=== PATIENT | female | born 1930 | race Caucasian/White ===

== ENCOUNTER 2017-11-09 19:03 | Inpatient (IN) | payer MEDICARE, BC ==
[~2017-11-09] VITALS: Ht 160 cm; Wt 59.2 kg
[~2017-11-09 19:03] MED LIST: ACET1TAB14 PO; AMLO10TA PO; CARI350T PO; CLON-529 PO; LACT-28 PO; LACT1CAP26 PO; LISI10TA4 PO; OCUVITE PO; OMEP40CA37 PO; TIZA4CAP PO
[2017-11-09 20:15] LABS: CLARITY,URINE SLIGHTLY CLOUDY (Clear); COLOR,URINE YELLOW (Yellow); GLUCOSE, URINE NEGATIVE (Neg); KETONES,URINE TRACE mg/dl (Neg); LEUKOCYTE ESTERASE ,URINE SMALL (Neg); NITRITES, URINE NEGATIVE (Neg); OCCULT BLOOD,URINE NEGATIVE (Neg); PROTEIN,URINE 30 mg/dl (Neg); UROBILINOGEN,URINE 0.2 E.U/dL (0.2-1.0)
[2017-11-09 20:20] LABS: BASOPHILS % (AUTO) 0.2 % (0-1); EOSINOPHILS # (AUTO) 0.3 X10'3 (0-0.9); EOSINOPHILS % (AUTO) 1.4 % (0-6); HEMATOCRIT 36.7 % (35.0-45.0); HEMOGLOBIN 12.4 g/dl (12.0-16.0); LYMPHOCYTES # (AUTO) 0.9 X10'3 (1.1-4.8); LYMPHOCYTES % (AUTO) 4.3 % (21-51); MEAN CORPUSCULAR HEMOGLOBIN 31.8 PG (27.0-31.0); MEAN CORPUSCULAR VOLUME 93.6 FL (78-98); MEAN PLATELET VOLUME 8.2 FL (7.4-10.4); MONOCYTES # (AUTO) 0.8 X10'3 (0-0.9); MONOCYTES % (AUTO) 3.8 % (2-12); NEUTROPHILS # (AUTO) 18.9 X10'3 (1.8-7.7); NEUTROPHILS % (AUTO) 90.3 % (42-75); PLATELET COUNT 343 X10'3 (140-440); RED BLOOD COUNT 3.92 X10'6 (4.20-5.60); RED CELL DISTRIBUTION WIDTH 14.6 % (11.5-14.5); WHITE BLOOD COUNT 20.9 X10'3 (4.5-11.0)
[2017-11-09 20:31] LABS: PROTHROMBIN TIME 9.9 SECONDS (9.0-12.0)
[2017-11-09 20:38] LABS: ALANINE AMINOTRANSFERASE 21 U/L (12-78); ALBUMIN 3.5 G/DL (3.4-5.0); ALBUMIN/GLOBULIN RATIO 0.9 (1.1-1.5); ALKALINE PHOSPHATASE 85 IU/L (46-116); ANION GAP 6 (8-16); ASPARTATE AMINO TRANSFERASE 17 U/L (10-37); BILIRUBIN,TOTAL 0.5 MG/DL (0.1-1.0); BLOOD UREA NITROGEN 22 MG/DL (7-18); BUN/CREATININE RATIO 15.7 (6.6-38.0); CALCIUM 8.9 MG/DL (8.5-10.1); CHLORIDE 99 MMOL/L (99-107); GLUCOSE 146 MG/DL (70-104); POTASSIUM 4.2 MMOL/L (3.5-5.1); SODIUM 135 MMOL/L (135-145); TOTAL CARBON DIOXIDE 29.8 MMOL/L (24-32); TOTAL PROTEIN 7.4 G/DL (6.4-8.2); eGFR 36 ML/MIN
[2017-11-09 20:52] LABS: UA COLLECTION TYPE CLN CATCH MIDSTREAM
[2017-11-09 21:00] LABS: BACTERIA,URINE FEW /HPF (Neg); MUCUS STRANDS FEW /LPF (Neg); RBC,URINE NONE SEEN /HPF (0-2); SQUAMOUS EPITHELIAL CELL,UR FEW /LPF (FEW); WBC,URINE 20-30 /HPF (0-4)
[2017-11-09 21:01] LABS: WBC CLUMPS,URINE FEW /HPF (NEGATIVE)
[2017-11-09] MEDS ORDERED: morphine 2 MG/ML inj. syringe IV ONE (22:40)
[2017-11-09] MEDS ORDERED: ondansetron/PF 4mg/2ml inj IV ONE (22:40)
[2017-11-09] MEDS ORDERED: metroNIDAZOLE 500mg tablet PO ONE (23:05)
[2017-11-09] MEDS ORDERED: ciprofloxacin lact 400MG/200ML 200 ML IV SCH (23:22)
[2017-11-10] MEDS ORDERED: cefTRIAXone 1g/NS 100ml IVPB 100 ML IV SCH ×3 (00:25→00:56)
[2017-11-10] MEDS ORDERED: magnesium hydroxide 30ml (MOM) UD suspension PO PRN (00:35)
[2017-11-10] MEDS ORDERED: ondansetron/PF 4mg/2ml inj IV PRN (00:35)
[2017-11-10] MEDS ORDERED: HYDROmorphone 1 mg/ml syringe IV PRN ×2 (00:35)
[2017-11-10] MEDS ORDERED: HYDROcodone/acetaminophen 5mg/325mg tablet PO PRN (00:35)
[2017-11-10] MEDS ORDERED: morphine 2 MG/ML inj. syringe IV PRN ×2 (00:35)
[2017-11-10] MEDS ORDERED: acetaminophen 325mg tablet PO PRN ×2 (00:35)
[2017-11-10] MEDS ORDERED: bisacodyl 10mg suppository rectal RC PRN (00:35)
[2017-11-10] MEDS ORDERED: diphenhydrAMINE 25mg capsule PO PRN (00:35)
[2017-11-10] MEDS ORDERED: mag hydrox/Alum hydrox/simeth 30ml oral suspension PO PRN (00:35)
[2017-11-10] MEDS ORDERED: HYDROcodone/acetaminophen 10/325mg tab PO PRN (00:35)
[2017-11-10] MEDS ORDERED: diphenhydrAMINE 50 mg/ml inj IV PRN (00:35)
[2017-11-10] MEDS ORDERED: acetaminophen 650mg rectal suppository RC PRN (00:35)
[2017-11-10] MEDS ORDERED: cyclobenzaprine 10mg tablet PO PRN (00:45)
[2017-11-10] MEDS ORDERED: CefTRIAXone/D5W-Rocephin 1gm 50 ML IV ONE (01:06)
[2017-11-10] MEDS: normal saline 1000ml 1,000 ML IV SCH ×3 (01:10→20:34)
[2017-11-10 01:16] LABS: HEMOGLOBIN A1C 6.1 % (4.5-6.2)
[2017-11-10 01:20] LABS: LIPASE < 50 U/L (73-393); MAGNESIUM 1.8 MG/DL (1.5-2.4); PHOSPHORUS 2.6 MG/DL (2.3-4.5)
[2017-11-10] MEDS ORDERED: HYDROmorphone 2mg/ml vial IV STA (03:18)
[2017-11-10] MEDS ORDERED: lactobacillus rhamnosus 10,000 MMU CELLS/CAPSULE PO SCH (07:30)
[2017-11-10 08:00] VITALS: BP 160/71
[2017-11-10] MEDS: docusate sod 100mg capsule PO SCH ×2 (08:00→20:00)
[2017-11-10] MEDS ORDERED: morphine 8mg/ml inj. syringe IV PRN ×2 (10:29)
[2017-11-10] MEDS ORDERED: HYDROmorphone 2mg/ml vial IV PRN (10:30)
[2017-11-10] MEDS: lactobacillus rhamnosus 10,000 MMU CELLS/CAPSULE PO SCH ×2 (10:44→17:47)
[2017-11-10] MEDS: cyclobenzaprine 10mg tablet PO SCH ×3 (10:45→20:17)
[2017-11-10] MEDS: amLODIPine 5mg tablet PO SCH (10:45)
[2017-11-10] MEDS: CefTRIAXone/D5W-Rocephin 1gm 50 ML IV SCH ×2 (10:46→20:18)
[2017-11-10] MEDS: HYDROmorphone 2mg/ml vial IV PRN ×4 (10:47→23:58)
[2017-11-10] MEDS: heparin, porcine 5000 units/ml vial SQ SCH ×2 (10:48→20:18)
[2017-11-10] MEDS: pantoprazole 40 MG vial IV SCH (10:48)
[2017-11-10 11:00] VITALS: BP 139/68
[2017-11-10] MEDS ORDERED: ERGO400C (14:57)
[2017-11-10 15:01] LABS: OCCULT BLOOD STOOL NEGATIVE (Neg)
[2017-11-10 15:47] LABS: C DIFF ANTIGEN POSITIVE (NEGATIVE); C DIFF SPECIMEN=DIARRHEA? ACCEPTABLE; C DIFFICILE TOXINS A&B POSITIVE (Neg)
[2017-11-10] MEDS ORDERED: morphine 5 MG/ML injection IV PRN (17:07)
[2017-11-10 20:00] VITALS: BP 143/74
[2017-11-10] MEDS ORDERED: temazepam 15mg capsule PO PRN (21:00)
[2017-11-11] VITALS: BP 162/81
[2017-11-11] MEDS: vancomycin 125mg/5ml ORAL solution 5ml UD bottle PO SCH ×4 (02:10→19:26)
[2017-11-11] MEDS: normal saline 1000ml 1,000 ML IV SCH ×2 (02:12→12:07)
[2017-11-11] MEDS: HYDROmorphone 2mg/ml vial IV PRN ×5 (04:40→23:46)
[2017-11-11 05:26] LABS: BASOPHILS # (AUTO) 0.1 X10'3 (0-0.2); BASOPHILS % (AUTO) 0.7 % (0-1); EOSINOPHILS # (AUTO) 0.3 X10'3 (0-0.9); EOSINOPHILS % (AUTO) 3.1 % (0-6); HEMATOCRIT 32.8 % (35.0-45.0); HEMOGLOBIN 11.2 g/dl (12.0-16.0); LYMPHOCYTES # (AUTO) 0.9 X10'3 (1.1-4.8); LYMPHOCYTES % (AUTO) 10.1 % (21-51); MEAN CORPUSCULAR HGB CONC 34.1 % (33.0-36.5); MEAN CORPUSCULAR VOLUME 94.1 FL (78-98); MEAN PLATELET VOLUME 8.7 FL (7.4-10.4); MONOCYTES # (AUTO) 0.8 X10'3 (0-0.9); MONOCYTES % (AUTO) 8.9 % (2-12); NEUTROPHILS # (AUTO) 6.9 X10'3 (1.8-7.7); NEUTROPHILS % (AUTO) 77.2 % (42-75); PLATELET COUNT 260 X10'3 (140-440); RED BLOOD COUNT 3.48 X10'6 (4.20-5.60); RED CELL DISTRIBUTION WIDTH 14.3 % (11.5-14.5); WHITE BLOOD COUNT 8.9 X10'3 (4.5-11.0)
[2017-11-11 06:06] LABS: ALANINE AMINOTRANSFERASE 10 U/L (12-78); ALBUMIN 2.7 G/DL (3.4-5.0); ALBUMIN/GLOBULIN RATIO 0.7 (1.1-1.5); ALKALINE PHOSPHATASE 68 IU/L (46-116); ANION GAP 9 (8-16); ASPARTATE AMINO TRANSFERASE 17 U/L (10-37); BILIRUBIN,TOTAL 0.3 MG/DL (0.1-1.0); BLOOD UREA NITROGEN 9 MG/DL (7-18); CALCIUM 8.3 MG/DL (8.5-10.1); CHLORIDE 104 MMOL/L (99-107); CHOL/HDL RATIO 3.2 (0.00-4.99); CHOLESTEROL 174 MG/DL (0-200); GLUCOSE 100 MG/DL (70-104); HDL CHOLESTEROL 55 MG/DL (35-60); LDL CHOLESTEROL 101 MG/DL (50-100); POTASSIUM 3.4 MMOL/L (3.5-5.1); SODIUM 139 MMOL/L (135-145); TOTAL CARBON DIOXIDE 25.9 MMOL/L (24-32); TOTAL PROTEIN 6.4 G/DL (6.4-8.2); TRIGLYCERIDES 127 MG/DL (20-135); eGFR 53 ML/MIN
[2017-11-11 07:00] VITALS: BP 161/83
[2017-11-11] MEDS: docusate sod 100mg capsule PO SCH ×2 (08:00→20:00)
[2017-11-11] MEDS ORDERED: pneumococcal 23-VAL P-sac vacc 25 mcg/0.5ml vial IMVAC ONE (10:00)
[2017-11-11] MEDS: lactobacillus rhamnosus 10,000 MMU CELLS/CAPSULE PO SCH ×2 (10:10→17:55)
[2017-11-11] MEDS: amLODIPine 5mg tablet PO SCH (10:11)
[2017-11-11] MEDS: cyclobenzaprine 10mg tablet PO SCH ×3 (10:11→19:27)
[2017-11-11] MEDS: heparin, porcine 5000 units/ml vial SQ SCH ×2 (10:14→19:27)
[2017-11-11] MEDS: pantoprazole 40 MG vial IV SCH (10:20)
[2017-11-11 11:00] VITALS: BP 134/62
[2017-11-11] MEDS ORDERED: magnesium 4gm in 100ml NS 100 ML IV PRN (11:50)
[2017-11-11] MEDS ORDERED: potassium Cl 20 mEq SR tablet PO PRN (11:50)
[2017-11-11] MEDS ORDERED: magnesium Cl slow-release 64mg tablet PO PRN (11:50)
[2017-11-11] MEDS ORDERED: potassium Cl 40MEQ/NS 500ml 500 ML IV PRN ×2 (11:50)
[2017-11-11] MEDS ORDERED: magnesium 2GM in 50ml NS 50 ML IV PRN (11:50)
[2017-11-11] MEDS: potassium Cl 20 mEq SR tablet PO PRN ×2 (12:06→16:18)
[2017-11-11 20:00] VITALS: BP 149/82
[2017-11-12] VITALS: BP 150/80
[2017-11-12] MEDS: vancomycin 125mg/5ml ORAL solution 5ml UD bottle PO SCH ×4 (01:52→20:00)
[2017-11-12] MEDS: HYDROmorphone 2mg/ml vial IV PRN ×4 (03:22→16:37)
[2017-11-12 05:50] LABS: BASOPHILS % (AUTO) 0.9 % (0-1); EOSINOPHILS # (AUTO) 0.2 X10'3 (0-0.9); EOSINOPHILS % (AUTO) 3.4 % (0-6); HEMATOCRIT 32.6 % (35.0-45.0); HEMOGLOBIN 10.8 g/dl (12.0-16.0); LYMPHOCYTES # (AUTO) 0.9 X10'3 (1.1-4.8); LYMPHOCYTES % (AUTO) 17.7 % (21-51); MEAN CORPUSCULAR HEMOGLOBIN 31.1 PG (27.0-31.0); MEAN CORPUSCULAR VOLUME 94.1 FL (78-98); MEAN PLATELET VOLUME 8.6 FL (7.4-10.4); MONOCYTES # (AUTO) 0.6 X10'3 (0-0.9); MONOCYTES % (AUTO) 12.1 % (2-12); NEUTROPHILS # (AUTO) 3.5 X10'3 (1.8-7.7); NEUTROPHILS % (AUTO) 65.9 % (42-75); PLATELET COUNT 252 X10'3 (140-440); RED BLOOD COUNT 3.46 X10'6 (4.20-5.60); RED CELL DISTRIBUTION WIDTH 13.8 % (11.5-14.5); WHITE BLOOD COUNT 5.3 X10'3 (4.5-11.0)
[2017-11-12 06:15] LABS: ALANINE AMINOTRANSFERASE 16 U/L (12-78); ALBUMIN 2.6 G/DL (3.4-5.0); ALBUMIN/GLOBULIN RATIO 0.7 (1.1-1.5); ALKALINE PHOSPHATASE 62 IU/L (46-116); ASPARTATE AMINO TRANSFERASE 17 U/L (10-37); BILIRUBIN,TOTAL 0.2 MG/DL (0.1-1.0); BLOOD UREA NITROGEN 6 MG/DL (7-18); BUN/CREATININE RATIO 6.7 (6.6-38.0); GLUCOSE 91 MG/DL (70-104); MAGNESIUM 1.8 MG/DL (1.5-2.4); TOTAL CARBON DIOXIDE 26.1 MMOL/L (24-32); TOTAL PROTEIN 6.1 G/DL (6.4-8.2); eGFR 60 ML/MIN
[2017-11-12 06:47] LABS: ANION GAP 7 (8-16); CHLORIDE 106 MMOL/L (99-107); POTASSIUM 3.6 MMOL/L (3.5-5.1); SODIUM 139 MMOL/L (135-145)
[2017-11-12 07:19] VITALS: BP 128/67
[2017-11-12] MEDS: normal saline 1000ml 1,000 ML IV SCH ×2 (07:52→14:06)
[2017-11-12] MEDS: amLODIPine 5mg tablet PO SCH (07:53)
[2017-11-12] MEDS: cyclobenzaprine 10mg tablet PO SCH ×3 (07:53→22:29)
[2017-11-12] MEDS: lactobacillus rhamnosus 10,000 MMU CELLS/CAPSULE PO SCH ×2 (07:53→16:39)
[2017-11-12] MEDS: pantoprazole 40 MG vial IV SCH (07:55)
[2017-11-12] MEDS: heparin, porcine 5000 units/ml vial SQ SCH ×2 (07:59→22:19)
[2017-11-12] MEDS: docusate sod 100mg capsule PO SCH ×2 (07:59→20:00)
[2017-11-12 11:00] VITALS: BP 139/61
[2017-11-12 20:00] VITALS: BP 137/84
[2017-11-12] MEDS: morphine 5 MG/ML injection IV PRN (22:23)
[2017-11-12] MEDS ORDERED: HYDROmorphone 2mg tablet PO PRN (23:55)
[2017-11-13] VITALS: BP 160/88
[2017-11-13] MEDS: vancomycin 125mg/5ml ORAL solution 5ml UD bottle PO SCH ×4 (02:11→20:07)
[2017-11-13] MEDS: HYDROmorphone 2mg tablet PO PRN (05:44)
[2017-11-13 05:57] LABS: BASOPHILS % (AUTO) 0.9 % (0-1); EOSINOPHILS # (AUTO) 0.2 X10'3 (0-0.9); EOSINOPHILS % (AUTO) 3.6 % (0-6); HEMATOCRIT 37.8 % (35.0-45.0); HEMOGLOBIN 12.7 g/dl (12.0-16.0); LYMPHOCYTES # (AUTO) 1.1 X10'3 (1.1-4.8); LYMPHOCYTES % (AUTO) 24.9 % (21-51); MEAN CORPUSCULAR HEMOGLOBIN 31.5 PG (27.0-31.0); MEAN CORPUSCULAR HGB CONC 33.6 % (33.0-36.5); MEAN CORPUSCULAR VOLUME 93.7 FL (78-98); MEAN PLATELET VOLUME 8.7 FL (7.4-10.4); MONOCYTES # (AUTO) 0.5 X10'3 (0-0.9); MONOCYTES % (AUTO) 11.9 % (2-12); NEUTROPHILS # (AUTO) 2.6 X10'3 (1.8-7.7); NEUTROPHILS % (AUTO) 58.7 % (42-75); PLATELET COUNT 277 X10'3 (140-440); RED BLOOD COUNT 4.03 X10'6 (4.20-5.60); RED CELL DISTRIBUTION WIDTH 14.1 % (11.5-14.5); WHITE BLOOD COUNT 4.5 X10'3 (4.5-11.0)
[2017-11-13 06:58] LABS: ALANINE AMINOTRANSFERASE 13 U/L (12-78); ALBUMIN/GLOBULIN RATIO 0.7 (1.1-1.5); ALKALINE PHOSPHATASE 72 IU/L (46-116); ANION GAP 8 (8-16); ASPARTATE AMINO TRANSFERASE 23 U/L (10-37); BILIRUBIN,TOTAL 0.3 MG/DL (0.1-1.0); BLOOD UREA NITROGEN 8 MG/DL (7-18); CALCIUM 8.7 MG/DL (8.5-10.1); CHLORIDE 105 MMOL/L (99-107); GLUCOSE 103 MG/DL (70-104); MAGNESIUM 1.8 MG/DL (1.5-2.4); POTASSIUM 3.8 MMOL/L (3.5-5.1); SODIUM 139 MMOL/L (135-145); TOTAL CARBON DIOXIDE 25.6 MMOL/L (24-32); TOTAL PROTEIN 7.1 G/DL (6.4-8.2); eGFR 53 ML/MIN
[2017-11-13] MEDS: docusate sod 100mg capsule PO SCH ×2 (08:00→20:00)
[2017-11-13 08:49] VITALS: BP 149/79
[2017-11-13] MEDS: cyclobenzaprine 10mg tablet PO SCH ×3 (09:25→20:08)
[2017-11-13] MEDS: amLODIPine 5mg tablet PO SCH (09:25)
[2017-11-13] MEDS: lactobacillus rhamnosus 10,000 MMU CELLS/CAPSULE PO SCH ×2 (09:26→16:55)
[2017-11-13] MEDS: morphine 5 MG/ML injection IV PRN ×5 (09:27→21:40)
[2017-11-13] MEDS: heparin, porcine 5000 units/ml vial SQ SCH ×2 (09:28→20:08)
[2017-11-13] MEDS: pantoprazole 40mg Tablet.DR PO SCH (09:41)
[2017-11-13 11:27] VITALS: BP 151/75
[2017-11-13] MEDS ORDERED: morphine 5 MG/ML injection IV PRN (12:25)
[2017-11-13] MEDS: normal saline 1000ml 1,000 ML IV SCH (12:42)
[2017-11-13 20:00] VITALS: BP 150/68
[2017-11-14] VITALS: BP 161/60
[2017-11-14] MEDS: morphine 5 MG/ML injection IV PRN ×4 (00:45→11:31)
[2017-11-14] MEDS: vancomycin 125mg/5ml ORAL solution 5ml UD bottle PO SCH ×4 (02:28→19:44)
[2017-11-14 05:56] LABS: BASOPHILS % (AUTO) 0.9 % (0-1); EOSINOPHILS # (AUTO) 0.2 X10'3 (0-0.9); HEMATOCRIT 35.4 % (35.0-45.0); LYMPHOCYTES % (AUTO) 24.7 % (21-51); MEAN CORPUSCULAR HEMOGLOBIN 31.1 PG (27.0-31.0); MEAN CORPUSCULAR HGB CONC 33.9 % (33.0-36.5); MEAN CORPUSCULAR VOLUME 91.9 FL (78-98); MONOCYTES # (AUTO) 0.6 X10'3 (0-0.9); MONOCYTES % (AUTO) 15.9 % (2-12); NEUTROPHILS # (AUTO) 2.1 X10'3 (1.8-7.7); NEUTROPHILS % (AUTO) 53.5 % (42-75); PLATELET COUNT 243 X10'3 (140-440); RED BLOOD COUNT 3.85 X10'6 (4.20-5.60); RED CELL DISTRIBUTION WIDTH 13.9 % (11.5-14.5); WHITE BLOOD COUNT 3.9 X10'3 (4.5-11.0)
[2017-11-14 06:19] LABS: ALANINE AMINOTRANSFERASE 24 U/L (12-78); ALBUMIN 2.9 G/DL (3.4-5.0); ALBUMIN/GLOBULIN RATIO 0.8 (1.1-1.5); ALKALINE PHOSPHATASE 61 IU/L (46-116); ANION GAP 11 (8-16); ASPARTATE AMINO TRANSFERASE 32 U/L (10-37); BILIRUBIN,TOTAL 0.3 MG/DL (0.1-1.0); BLOOD UREA NITROGEN 7 MG/DL (7-18); CALCIUM 8.2 MG/DL (8.5-10.1); CHLORIDE 106 MMOL/L (99-107); GLUCOSE 96 MG/DL (70-104); MAGNESIUM 1.6 MG/DL (1.5-2.4); POTASSIUM 3.3 MMOL/L (3.5-5.1); SODIUM 141 MMOL/L (135-145); TOTAL CARBON DIOXIDE 24.4 MMOL/L (24-32); TOTAL PROTEIN 6.5 G/DL (6.4-8.2); eGFR 53 ML/MIN
[2017-11-14 07:00] VITALS: BP 146/82
[2017-11-14] MEDS: cyclobenzaprine 10mg tablet PO SCH ×3 (08:10→19:45)
[2017-11-14] MEDS: heparin, porcine 5000 units/ml vial SQ SCH ×2 (08:10→19:45)
[2017-11-14] MEDS: docusate sod 100mg capsule PO SCH ×2 (08:10→19:51)
[2017-11-14] MEDS: amLODIPine 5mg tablet PO SCH (08:10)
[2017-11-14] MEDS: lactobacillus rhamnosus 10,000 MMU CELLS/CAPSULE PO SCH ×2 (08:10→17:42)
[2017-11-14] MEDS: pantoprazole 40mg Tablet.DR PO SCH (08:10)
[2017-11-14] MEDS: normal saline 1000ml 1,000 ML IV SCH ×2 (08:10→22:51)
[2017-11-14 11:00] VITALS: BP 126/68
[2017-11-14] MEDS ORDERED: magnesium 4gm in 100ml NS 100 ML IV PRN (12:40)
[2017-11-14] MEDS ORDERED: magnesium 2GM in 50ml NS 50 ML IV PRN (12:40)
[2017-11-14] MEDS ORDERED: magnesium Cl slow-release 64mg tablet PO PRN (12:40)
[2017-11-14] MEDS ORDERED: potassium Cl 20 mEq SR tablet PO PRN (12:40)
[2017-11-14] MEDS ORDERED: potassium Cl 40MEQ/NS 500ml 500 ML IV PRN ×2 (12:40)
[2017-11-14] MEDS: potassium Cl 20 mEq SR tablet PO PRN ×2 (13:33→19:45)
[2017-11-14] MEDS ORDERED: morphine 2 MG/ML inj. syringe IV PRN (14:29)
[2017-11-14] MEDS: morphine 2 MG/ML inj. syringe IV PRN ×2 (14:45→19:57)
[2017-11-14] MEDS: HYDROmorphone 2mg tablet PO PRN ×2 (15:49→22:48)
[2017-11-14 20:00] VITALS: BP 141/86
[2017-11-15] VITALS: BP 138/66
[2017-11-15] MEDS: vancomycin 125mg/5ml ORAL solution 5ml UD bottle PO SCH ×3 (02:03→13:28)
[2017-11-15] MEDS: morphine 2 MG/ML inj. syringe IV PRN (02:03)
[2017-11-15] MEDS: HYDROmorphone 2mg tablet PO PRN ×3 (05:20→14:56)
[2017-11-15 05:33] LABS: BASOPHILS % (AUTO) 1.1 % (0-1); EOSINOPHILS # (AUTO) 0.3 X10'3 (0-0.9); EOSINOPHILS % (AUTO) 7.4 % (0-6); HEMATOCRIT 35.1 % (35.0-45.0); HEMOGLOBIN 11.8 g/dl (12.0-16.0); LYMPHOCYTES # (AUTO) 1.2 X10'3 (1.1-4.8); LYMPHOCYTES % (AUTO) 33.2 % (21-51); MEAN CORPUSCULAR HEMOGLOBIN 31.1 PG (27.0-31.0); MEAN CORPUSCULAR HGB CONC 33.5 % (33.0-36.5); MEAN PLATELET VOLUME 8.4 FL (7.4-10.4); MONOCYTES # (AUTO) 0.6 X10'3 (0-0.9); MONOCYTES % (AUTO) 17.2 % (2-12); NEUTROPHILS # (AUTO) 1.4 X10'3 (1.8-7.7); NEUTROPHILS % (AUTO) 41.1 % (42-75); PLATELET COUNT 227 X10'3 (140-440); RED BLOOD COUNT 3.78 X10'6 (4.20-5.60); RED CELL DISTRIBUTION WIDTH 14.1 % (11.5-14.5); WHITE BLOOD COUNT 3.5 X10'3 (4.5-11.0)
[2017-11-15 06:08] LABS: ALANINE AMINOTRANSFERASE 26 U/L (12-78); ALBUMIN 2.8 G/DL (3.4-5.0); ALBUMIN/GLOBULIN RATIO 0.8 (1.1-1.5); ALKALINE PHOSPHATASE 59 IU/L (46-116); ANION GAP 9 (8-16); ASPARTATE AMINO TRANSFERASE 31 U/L (10-37); BILIRUBIN,TOTAL 0.3 MG/DL (0.1-1.0); BLOOD UREA NITROGEN 10 MG/DL (7-18); CALCIUM 8.4 MG/DL (8.5-10.1); CHLORIDE 107 MMOL/L (99-107); GLUCOSE 92 MG/DL (70-104); MAGNESIUM 1.6 MG/DL (1.5-2.4); POTASSIUM 3.7 MMOL/L (3.5-5.1); SODIUM 140 MMOL/L (135-145); TOTAL CARBON DIOXIDE 24.1 MMOL/L (24-32); TOTAL PROTEIN 6.3 G/DL (6.4-8.2); eGFR 53 ML/MIN
[2017-11-15 07:00] VITALS: BP 158/79
[2017-11-15] MEDS: lactobacillus rhamnosus 10,000 MMU CELLS/CAPSULE PO SCH (07:56)
[2017-11-15] MEDS: pantoprazole 40mg Tablet.DR PO SCH (07:56)
[2017-11-15] MEDS: cyclobenzaprine 10mg tablet PO SCH ×2 (07:56→13:28)
[2017-11-15] MEDS: amLODIPine 5mg tablet PO SCH (07:56)
[2017-11-15] MEDS: docusate sod 100mg capsule PO SCH (07:56)
[2017-11-15] MEDS: heparin, porcine 5000 units/ml vial SQ SCH (07:57)
[2017-11-15 11:00] VITALS: BP 147/66
== END 2017-11-15 18:10 | disposition home or self-care (01) | DRG 871 ==
LOC: ER 19:03 → ED HOLD 11-10 00:34 → EDBEDREQ 11-10 04:24 → SUR 3N 11-10 07:15
PROVIDERS: ADMIT Family Medicine; ATTEND Internal Medicine
DX: A41.9 Sepsis, unspecified organism (principal); N17.0 Acute kidney failure with tubular necrosis; E43 Unspecified severe protein-calorie malnutrition; A04.72 Enterocolitis due to Clostridium difficile, not specified as recurrent; N39.0 Urinary tract infection, site not specified; I10 Essential (primary) hypertension; E87.6 Hypokalemia; Z90.5 Acquired absence of kidney; Z88.1 Allergy status to other antibiotic agents; Z88.2 Allergy status to sulfonamides; Z79.899 Other long term (current) drug therapy; Z82.49 Family history of ischemic heart disease and other diseases of the circulatory system; Z80.1 Family history of malignant neoplasm of trachea, bronchus and lung; Z68.23 Body mass index [BMI] 23.0-23.9, adult
CPT/HCPCS: 36415; 74176; 76775; 80053; 80061; 81001; 82272; 83036; 83605; 83690; 83735; 83880; 84100; 84145; 84443; 84484; 85025; 85610; 87040; 87045; 87046; 87070; 87088; 87324; 87449; 89055; 90732; 96374; 96375; 99285; A6258; C9113; J0696; J0744; J1170; J1200; J1644; J2270; J2405; J3490; J7030